=== PATIENT | male | born 1990 | race Two or more races ===

== ENCOUNTER 2019-06-18 11:51 | Emergency (ER) | payer OTHER ==
[~2019-06-18] VITALS: Ht 172.7 cm; Wt 68.9 kg
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
[2019-06-18 12:45] LABS: BASOPHILS % (AUTO) 0.5 % (0.0-2.0); EOSINOPHILS % (AUTO) 0.5 % (0.0-6.0); HEMATOCRIT 49 % (39-51); HEMOGLOBIN 16.4 g/dL (13.5-17.5); LYMPHOCYTES # (AUTO) 1.8 /CMM (0.8-4.8); LYMPHOCYTES % (AUTO) 22.8 % (20.0-44.0); MEAN CORPUSCULAR HGB CONC 34 g/dl (31.0-36.0); MEAN CORPUSCULAR VOLUME 90 fL (80-96); MONOCYTES # (AUTO) 0.4 /CMM (0.1-1.30); MONOCYTES % (AUTO) 5.4 % (2.0-12.0); NEUTROPHILS # (AUTO) 5.7 /CMM (1.8-8.9); NEUTROPHILS % (AUTO) 70.8 % (43.0-81.0); PLATELET COUNT (AUTO) 298 /CMM (150-450); WHITE BLOOD COUNT (AUTO) 8.1 K/uL (4.3-11.0)
[2019-06-18 13:08] LABS: ALBUMIN 4.2 g/dL (3.4-5.0); BILIRUBIN,TOTAL 0.3 mg/dL (0.2-1.0); CALCIUM, SERUM 8.5 mg/dL (8.5-10.1); CREATININE 0.9 mg/dL (0.6-1.3); POTASSIUM 4.1 mmol/L (3.5-5.1); TOTAL PROTEIN, SERUM 7.7 g/dL (6.4-8.2)
[2019-06-18 13:09] LABS: SALICYLATE 0.8 mg/dL (2.8-20.0)
--- NOTE | 2019-06-18 14:00 | NUR ---
PT NOW A/OX3. WALKED TO BATHROOM.
--- NOTE | 2019-06-18 14:11 | NUR ---
placed call to pt's Ellie, left voicemail
--- NOTE | 2019-06-18 14:15 | NUR ---
PT AMBULATORY STEADY GAIT
--- NOTE | 2019-06-18 14:30 | NUR ---
pt's mother paola will come to pick him up but she is "on the other side of town so it will be a while"
--- NOTE | 2019-06-18 14:35 | NUR ---
ordered lunch tray
--- NOTE | 2019-06-18 15:30 | NUR ---
DIAN AT BEDSIDE FOR SOCIAL WORK
--- NOTE | 2019-06-18 16:08 | NUR ---
PT FAMILY ETA 20-25 MINUTES
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
[2019-06-18 17:05] VITALS: BP 121/87
--- NOTE | 2019-06-18 17:05 | NUR ---
Patient discharged to home in stable condition. Written and verbal after care instructions given. Patient verbalizes understanding of instruction. DISCHARGED WITH MOTHER.
== END 2019-06-18 17:21 | disposition home or self-care (01) ==
LOC: ER 11:54
DX: S60.511A Abrasion of right hand, initial encounter (principal); F10.129 Alcohol abuse with intoxication, unspecified; R51 Headache; W19.XXXA Unspecified fall, initial encounter; Y93.89 Activity, other specified; Y92.89 Other specified places as the place of occurrence of the external cause; Y99.8 Other external cause status; Y90.8 Blood alcohol level of 240 mg/100 ml or more
CPT/HCPCS: 36415; 70450; 73130; 80048; 80076; 80307; 80329; 85025; 99284; G0480